=== PATIENT | female | born 1980 ===

== ENCOUNTER → 2024-07-17 | Outpatient (CLI) | payer BC ==
--- NOTE | 2024-08-05 18:18 | MM ---
Reason for Exam: Screening (asymptomatic). Last mammogram was performed 2 year(s) and 10 month(s) ago. Patient History: Menarche at age 11. First Full-Term at age 30. Premenopausal. Maternal aunt had breast cancer at or over age 50. Risk Values: Belén 5 year model risk: 0.9%. NCI Lifetime model risk: 11.8%. Prior Study Comparison: 09/22/2021 Bilateral MG 3D screening mammo w/cad, Unknown. Tissue Density: The breasts are heterogeneously dense, which may obscure small masses. Findings: Analyzed By CAD. Upper inner quadrant focal asymmetry right breast middle to posterior depth is more defined. This may represent superimposition shadow but further evaluation is recommended. Otherwise, no significant change. Overall Assessment: Incomplete: need additional imaging evaluation, BI-RAD 0 Management: Special View Mammogram of the right breast. Diagnostic Breast Ultrasound of the right breast. [facility] will attempt to contact patient to return for supplemental views and ultrasound if indicated. Electronically signed and approved by: Juanita Blum M.D. Radiologist
== END | disposition home or self-care (01) ==
LOC: RADMAMWWP 19:08
PROVIDERS: ATTEND Family Medicine
DX: Z12.31 Encounter for screening mammogram for malignant neoplasm of breast (principal); Z80.3 Family history of malignant neoplasm of breast; R92.333 Mammographic heterogeneous density, bilateral breasts
CPT/HCPCS: 77067

== ENCOUNTER → 2024-08-16 | Outpatient (CLI) | payer BC ==
--- NOTE | 2024-08-16 11:19 | MM ---
Reason for Exam: Additional evaluation requested from abnormal screening. Last screening mammogram was performed less than 1 month ago. Patient History: Menarche at age 11. First Full-Term at age 30. Premenopausal. Patient has history of breast feeding. Currently using Hormonal Contraceptives, starting at age 22. Maternal aunt had breast cancer at or over age 50. Risk Values: Belén 5 year model risk: 0.9%. NCI Lifetime model risk: 11.8%. Prior Study Comparison: 09/22/2021 Bilateral MG 3D screening mammo w/cad, Unknown. 07/17/2024 Bilateral MG screening mammo w CAD, [facility]. Tissue Density: Right: The breasts are extremely dense, which lowers the sensitivity of mammography. Findings: Analyzed By CAD. Pattern appears stable. On compression no persistent upper inner right breast asymmetry is evident. No suspicious groups of microcalcifications, spiculated or lobular masses, architectural distortion or other secondary signs of malignancy are mammographically apparent. Overall Assessment: Negative, BI-RAD 1 Management: Screening Mammogram of both breasts in 1 year. A negative mammogram report should not preclude additional follow up of suspicious palpable abnormalities. Patient should continue monthly self breast exam. A clinical breast exam by your physician is recommended on an annual basis and results should be correlated with mammographic findings. Note on Belén scores and lifetime risk: 1. A Belén score greater than 3% is considered moderate risk. If this is the case, consider specialist referral to assess eligibility for a risk reducing agent. 2. If overall lifetime risk for the development of breast cancer is 20% or higher, the patient may qualify for future screening with alternating mammogram and breast MRI. [facility], , 08/16/2024 11:16 AM. Electronically signed and approved by: Severino Rangel D.O. Radiologis
== END | disposition home or self-care (01) ==
LOC: RADMAMWWP 10:17
PROVIDERS: ATTEND Family Medicine
DX: R92.8 Other abnormal and inconclusive findings on diagnostic imaging of breast
CPT/HCPCS: 77061; 77065